=== PATIENT | female | born 1980 | race Caucasian/White ===

== ENCOUNTER 2017-07-15 09:04 | Emergency (ER) | payer MEDICAID ==
[2017-07-15] MEDS ORDERED: OXYCODONE-ACETAMINOPHEN 5-325 MG TABLET PO ONE (10:52)
--- NOTE | 2017-07-15 11:03 | RADIOLOGY REPORT (SQ) ---
EXAM DESCRIPTION: U/S NON-OB PELVIS W/O DOP COMPLETED DATE/TIME: 07/15/2017 10:47 am REASON FOR STUDY: vaginal protrusion COMPARISON: None. TECHNIQUE: Dynamic and static grayscale images acquired of the pelvis via transabdominal and trans l abial approach and recorded on PACS. Additional selected color Doppler and spectral images recorded. LIMITATIONS: None. FINDINGS: The patient has a very painful nodule along the anterior perineum/anterior wall of the int roitus. Trans labial imaging demonstrates a hypoechoic cystic structure measuring 18 mm in diameter along the dorsal aspect of the urethral orifice. There are few low level internal echoes present within the s tructure, and few foci of color flow around its periphery. This could indicate the distally urethral diverticulum or urethrocele. Superimposed infection/inflammation or tumor could not entirely be exc luded. Remainder of the urethra by ultrasound is unremarkable. No cystocele. These findings were discussed with Dr. Tirado. UTERUS: Contour normal. No mass. Uterus is 9 x 5 x 5 cm in size ENDOMETRIAL STRIPE: No focal or generalized thickening. No masses. 7 mm in thickness CERVIX: No nabothian cysts. RIGHT OVARY: No abnormal masses. 3.1 x 2.5 x 2 cm in size RIGHT OVARY DOPPLER: Normal arterial vascular flow without evidence for torsion. LEFT OVARY: No abnormal masses. 3.9 x 2.8 x 2.4 cm in size LEFT OVARY DOPPLER: Normal arterial vascular flow without evidence for torsion. FREE FLUID: None noted. OTHER: No other significant finding. IMPRESSION: Hypoechoic predominantly cystic structure at the urethral orifice at the perineum. Find ings likely represent a urethrocele or urethral diverticulum. Superimposed inflammation/ infection o r tumor could not be excluded. No cystocele. Otherwise unremarkable transabdominal ultrasound of the female pelvic organs TECHNICAL DOCUMENTATION: JOB ID: [id number] [employer]- All Rights Reserved
--- NOTE | 2017-07-15 11:21 | ER Document Report ---
ED General - General Chief Complaint: Abdominal Cramping Stated Complaint: ABDOMINAL PAIN Time Seen by Provider: 07/15/17 09:45 Mode of Arrival: Ambulatory Information source: Patient Notes: 37-year-old female presents with 2 day duration of some type of mass protruding from her vagina. Patient notes that it feels like a marble. She denies any fevers chills denies any nausea vomiting she does admit to foul smell. TRAVEL OUTSIDE OF THE [place] IN LAST 30 DAYS: No - HPI Onset: Just prior to arrival - Related Data Allergies/Adverse Reactions: Penicillins Allergy (Severe, Verified 07/15/17 09:05) Home Medications: Current Home Medications Albuterol Sulfate [Proair HFA Inhalation Aerosol 8.5 gm MDI] 2 puff IH Q4HP PRN 07/15/17 [History] Cetirizine HCl [Zyrtec 10 mg Tablet] 10 mg PO DAILY 07/15/17 [History] Clonazepam [Clonazepam] 0.5 mg PO TID 07/15/17 [History] Fluticasone Propionate [Flonase Nasal Pauline 50 Mcg/Pauline 16 gm] 1 spray IN DAILY 07/15/17 [History] Hydrochlorothiazide [Hydrochlorothiazide] 12.5 mg PO DAILY 07/15/17 [History] Lamotrigine [Lamotrigine] 200 mg PO DAILY 07/15/17 [History] Metformin HCl [Metformin HCl] 500 mg PO QID 07/15/17 [History] Polyethylene Glycol 3350 [Miralax] 0.5 cap PO BID 07/15/17 [History] Telmisartan [Telmisartan] 80 mg PO DAILY 07/15/17 [History] Past Medical History - Social History Smoking Status: Current Every Day Smoker Cigarette use (# per day): Yes Chew tobacco use (# tins/day): No Smoking Education Provided: No Frequency of alcohol use: None Drug Abuse: None Family History: Reviewed & Not Pertinent Patient has suicidal ideation: No Patient has homicidal ideation: No - Past Medical History Cardiac Medical History: Reports: Hx Hypertension Pulmonary Medical History: Reports: Hx Asthma Neurological Medical History: Denies: Hx Seizures Endocrine Medical History: Reports: Hx Diabetes Mellitus Type 2 Renal/ Medical History: Denies: Hx Peritoneal Dialysis Past Surgical History: - Immunizations Hx Diphtheria, Pertussis, Tetanus Vaccination: Yes Review of Systems - Review of Systems Notes: REVIEW OF SYSTEMS: CONSTITUTIONAL : Denies fever, chills, or sweats. Denies recent illness. EENT: Denies eye, ear, throat, or mouth pain or symptoms. Denies nasal or sinus congestion or discharge. Denies throat, tongue, or mouth swelling or difficulty swallowing. CARDIOVASCULAR: Denies chest pain. Denies palpitations or racing or irregular heart beat. Denies ankle edema. RESPIRATORY: Denies cough, cold, or chest congestion. Denies shortness of breath, difficulty breathing, or wheezing. GASTROINTESTINAL: Denies abdominal pain or distention. Denies nausea, vomiting , or diarrhea. Denies blood in vomitus, stools, or per rectum. Denies black, tarry stools. Denies constipation. GENITOURINARY: Denies difficulty urinating, painful urination, burning, frequency, blood in urine, or discharge. FEMALE GENITOURINARY: Denies vaginal bleeding, heavy or abnormal periods, irregular periods. Admits to vaginal odor MUSCULOSKELETAL: Denies back or neck pain or stiffness. Denies joint pain or swelling. SKIN: Denies rash, lesions or sores. HEMATOLOGIC : Denies easy bruising or bleeding. LYMPHATIC: Denies swollen, enlarged glands. NEUROLOGICAL: Denies confusion or altered mental status. Denies passing out or loss of consciousness. Denies dizziness or lightheadedness. Denies headache. Denies weakness or paralysis or loss of use of either side. Denies problems with gait or speech. Denies sensory loss, numbness, or tingling. Denies seizures. PSYCHIATRIC: Denies anxiety or stress. Denies depression, suicidal ideation, or homicidal ideation. ALL OTHER SYSTEMS REVIEWED AND NEGATIVE. PHYSICAL EXAMINATION: GENERAL: Well-appearing, well-nourished and in no acute distress. HEAD: Atraumatic, normocephalic. EYES: Pupils equal round and reactive to light, extraocular movements intact, conjunctiva are normal. ENT: Nares patent, oropharynx clear without exudates. Moist mucous membranes. NECK: Normal range of motion, supple without lymphadenopathy LUNGS: Breath sounds clear to auscultation bilaterally and equal. No wheezes rales or rhonchi. HEART: Regular rate and rhythm without murmurs ABDOMEN: Soft, nontender, nondistended abdomen. No guarding, no rebound. No masses appreciated. Female : Pelvic exam was performed and repeated with multiple providers in the room including nurses and techs with each exam protruding mass noted with small amount of drainage tender to palpation Musculoskeletal: Normal range of motion, no pitting or edema. No cyanosis. NEUROLOGICAL: Cranial nerves grossly intact. Normal speech, normal gait. Normal sensory, motor exams PSYCH: Normal mood, normal affect. SKIN: Warm, Dry, normal turgor, no rashes or lesions noted. Dictation was performed using [email or web address] voice recognition software Physical Exam - Vital signs Vitals: Temp Pulse Resp BP Pulse Ox 98.6 F 111 H 20 124/73 98 07/15/17 09:22 07/15/17 09:22 07/15/17 09:22 07/15/17 09:22 07/15/17 09:22 Course - Re-evaluation Re-evalutation: 07/15/17 11:20 I am unsure the physical findings, I request a second ED physician evaluate and he believes it is a cystocele, an ultrasound was performed and again there is no definitive diagnosis therefore I did ask [employer] to evaluate as well Dr. Madera believes it is a urethral diverticulum which would be consistent with ultrasound finding 07/15/17 11:59 Spoke with urology at [facility], does not believe it is emergent, suggests treatment for UTI, Follow up with Dr Kate or Dr Loaiza 07/15/17 16:34 After performing a Medical Screening Examination, I estimate there is LOW risk for ACUTE APPENDICITIS, BOWEL OBSTRUCTION, ACUTE CHOLECYSTITIS, PERFORATED DIVERTICULITIS, INCARCERATED HERNIA, PANCREATITIS, PELVIC INFLAMMATORY DISEASE, PERFORATED ULCER, ECTOPIC , or TUBO-OVARIAN ABSCESS, thus I consider the discharge disposition reasonable. Also, there is no evidence or peritonitis , sepsis, or toxicity. I have reevaluated this patient multiple times and no significant life threatening changes are noted. The patient and I have discussed the diagnosis and risks, and we agree with discharging home with close follow-up with the understanding that symptoms and presentations can change. We also discussed returning to the Emergency Department immediately if new or worsening symptoms occur. We have discussed the symptoms which are most concerning (e.g., bloody stool, fever, changing or worsening pain, vomiting) that necessitate immediate return. - Vital Signs Vital signs: Temp Pulse Resp BP Pulse Ox 98.6 F 80 18 115/75 96 07/15/17 09:22 07/15/17 12:24 07/15/17 12:24 07/15/17 12:24 07/15/17 12:24 - Diagnostic Test Radiology reviewed: Image reviewed, Reports reviewed Discharge - Discharge Clinical Impression: Urethral diverticulum, Pelvic mass in female Condition: Stable Disposition: HOME, SELF-CARE Additional Instructions: Follow up with Urologist Dr Humble [place] Office [address] [facility] [place], [place] [phone] You have been diagnosed with a urethral diverticulum please follow-up with the urologist provided to you return immediately if there are any other concerns Prescriptions: Cephalexin Monohydrate [Keflex 500 mg Capsule] 500 mg PO BID #20 capsule Oxycodone HCl/Acetaminophen [Percocet 5-325 mg Tablet] 1 - 2 tab PO Q4H PRN #15 tablet PRN Reason: Referrals: JASON WADE MD [Primary Care Provider] - Follow up as needed
[2017-07-15 12:28] VITALS: BP 115/75
== END 2017-07-15 13:04 | disposition home or self-care (01) ==
LOC: ER 09:04
DX: N36.1 Urethral diverticulum (principal); R19.00 Intra-abdominal and pelvic swelling, mass and lump, unspecified site; R10.9 Unspecified abdominal pain; Z79.899 Other long term (current) drug therapy; F17.210 Nicotine dependence, cigarettes, uncomplicated
CPT/HCPCS: 76856; 99284